=== PATIENT | male | born 1980 | race Caucasian/White ===

== ENCOUNTER 2021-06-18 13:37 | Outpatient (CLI) | payer OTHER ==
[~2021-06-18 13:37] MED LIST: VISTARIL25 MG PO
== END 2021-06-18 13:44 | disposition home or self-care (01) ==
LOC: RAD 13:37
DX: M43.8X2 Other specified deforming dorsopathies, cervical region (principal)

== ENCOUNTER 2021-11-20 14:47 | Outpatient (CLI) | payer OTHER | END 2021-11-20 14:51 | disposition home or self-care (01) | LOC: RAD 14:47 | DX: M54.2 Cervicalgia (principal); M54.6 Pain in thoracic spine; M54.50 Low back pain, unspecified ==

== ENCOUNTER 2023-10-05 14:58 | Emergency (ER) | payer OTHER ==
[~2023-10-05] VITALS: Ht 172.7 cm; Wt 87.5 kg
[2023-10-05 16:35] LABS: URINE APPEARANCE Cloudy; URINE BILIRRUBIN Negative (NEGATIVE); URINE BLOOD Negative; URINE COLOR Yellow; URINE GLUCOSE Negative (NEGATIVE); URINE LEUKOCYTE Negative; URINE NITRATE Negative; URINE PROTEIN Negative (NEGATIVE); URINE UROBILINOGEN 0.2 E.U./dl
[2023-10-05 16:39] LABS: URINE BACTERIA 8.8 uL (0.0-1933); URINE EPITHELIAL CELLS 1.6 uL (0.0-38.8); URINE RBC 2.2 uL (0.0-20.8); URINE WBC 2.9 uL (0.0-23.2)
[2023-10-05] MEDS ORDERED: KETOROLAC TROMETHAMINE 10 MG TABLET PO ONE (18:30)
== END 2023-10-05 18:29 ==
LOC: ER 14:59
PROVIDERS: Nurse Practitioner Family
DX: M79.10 Myalgia, unspecified site (principal)